=== PATIENT | male | born 1985 | race Caucasian/White ===

== ENCOUNTER 2025-03-30 18:45 | Emergency (ER) | payer OTHER ==
[~2025-03-30] VITALS: Ht 172.7 cm; Wt 77.0 kg
[2025-03-30 18:47] VITALS: TEMP 36.6; O2SAT 96
[2025-03-30] MEDS ORDERED: LORAZEPAM 2MG/ML INJ IM ONE (19:15)
[2025-03-30] MEDS: LORAZEPAM 2MG/ML UD SYRINGE IM NR (19:39)
[2025-03-30] MEDS: HALOPERIDOL LACTATE 5MG/ML VIAL IM ONE (19:39)
[2025-03-30 20:57] LABS: BASOPHILS % 0.3 % (0.0-2.0); EOSINOPHILS % 0.7 % (0.0-5.0); HEMATOCRIT. 28.8 % (42.0-52.0); HEMOGLOBIN. 9.9 g/dL (14.0-18.0); LYMPHOCYTES % 33.1 % (20.0-50.0); MEAN CORPUSCULAR HEMOGLOBIN 33.3 pg (28.0-32.0); MEAN CORPUSCULAR HGB CONC 34.3 g/dL (31.0-37.0); MEAN PLATELET VOLUME 10.4 fl (7.4-10.4); MONOCYTES % 11.9 % (2.0-8.0); PLATELET 120 x1000/uL (130-400); RED BLOOD CELL COUNT 2.97 mill/uL (4.7-6.1); RED CELL DISTRIBUTION WIDTH 15.5 % (11.6-14.6); WHITE BLOOD COUNT 10.4 x1000/uL (4.5-11.0)
[2025-03-30 21:15] LABS: CHLORIDE 96 mEq/L (98-107); POTASSIUM 3.3 mEq/L (3.5-5.1); SODIUM 137 mEq/L (136-145)
[2025-03-30 21:16] LABS: CALCIUM 7.6 mg/dL (8.7-10.4); CARBON DIOXIDE 29 mEq/L (21-32)
[2025-03-30 21:21] LABS: CREATININE 0.5 mg/dL (0.6-1.3); GLUCOSE 336 mg/dL (70-105); UREA NITROGEN BLOOD < 5 mg/dL (9-23)
[2025-03-30 21:22] LABS: ETHANOL BLOOD 300 mg/dL (<10)
[2025-03-30 21:23] LABS: ALANINE AMINOTRANSFERASE 44 IU/L (10-49); ALBUMIN 3.5 g/dL (3.2-4.8); ASPARTATE AMINOTRANSFERASE 85 IU/L (<34); BILIRUBIN DIRECT 0.4 mg/dL (<=3.0)
[2025-03-30 21:24] LABS: PROTEIN TOTAL 7.1 g/dL (6.0-8.3)
[2025-03-30 21:29] LABS: LACTIC ACID 3.3 mmol/L (0.4-2.0)
[2025-03-30 21:35] LABS: TROPONIN I HIGH SENSITIVITY < 4 ng/L (3.0-53)
[2025-03-30 21:39] LABS: CLARITY URINE CLEAR (CLEAR); COLOR URINE YELLOW (YELLOW); GLUCOSE URINE 3+ (NEGATIVE); KETONES URINE NEGATIVE (NEGATIVE); LEUKOCYTE ESTERASE URINE NEGATIVE (NEGATIVE); NITRITE URINE NEGATIVE (NEGATIVE); OCCULT BLOOD URINE NEGATIVE (NEGATIVE); PROTEIN URINE NEGATIVE (NEGATIVE); SPECIFIC GRAVITY URINE 1.009 (1.005-1.030)
[2025-03-30 22:00] LABS: BACTERIA URINE NONE SEEN; RBC URINE NONE SEEN /hpf (0-2); SQUAMOUS EPITHELIAL CELL URINE RARE /lpf (RARE/1+); WBC URINE NONE SEEN /hpf (0-2)
[2025-03-30 22:02] LABS: *AMPHETAMINES SCREEN URINE NEGATIVE (NEGATIVE)
[2025-03-30 22:03] LABS: *BARBITURATES SCREEN URINE NEGATIVE (NEGATIVE); *BENZODIAZEPINES SCREEN URINE NEGATIVE (NEGATIVE); *COCAINE SCREEN URINE NEGATIVE (NEGATIVE); CANNABINOID URINE SCREEN NEGATIVE (NEGATIVE); ECSTASY MDMA SCREEN URINE NEGATIVE (NEGATIVE); METHADONE URINE SCREEN NEGATIVE (NEGATIVE); OPIATES URINE SCREEN NEGATIVE (NEGATIVE); PHENCYCLIDINE URINE SCREEN NEGATIVE (NEGATIVE)
[2025-03-30] MEDS: MORPHINE SULFATE 4 MG/ML INJ (FOR IV/IM USE) IV STA (22:17)
[2025-03-30] MEDS: ONDANSETRON HCL 4MG/2ML INJ IV STA (22:17)
[2025-03-30] MEDS: PANTOPRAZOLE SODIUM 40 MG/VIAL IV STA (22:17)
[2025-03-30 22:37] LABS: INR 1.2
[2025-03-30] MEDS: POTASSIUM CHLORIDE 20MEQ/PACKET PO ONE (23:14)
[2025-03-31 00:46] VITALS: BP 133/94; PULSE 120; RESP 13; O2SAT 98
== END 2025-03-31 01:16 ==
LOC: ER 18:45 → EDBEDREQ 19:58 → EDBEDREQSVC 03-31 00:01 → ENRESERV 03-31 00:37 → ER 03-31 01:16
DX: E11.65 Type 2 diabetes mellitus with hyperglycemia (principal); F10.129 Alcohol abuse with intoxication, unspecified; I10 Essential (primary) hypertension; Z79.899 Other long term (current) drug therapy; Y90.8 Blood alcohol level of 240 mg/100 ml or more
CPT/HCPCS: 80076; 80305; 80048; 81003; 80320; 83880; 83605; 83690; 85025; 85610; 87040; 87086; 87186; 84484; 87077; 36415; 71045; 70450; 70486; 93005; 96372; 96374; 96375; 99291; J1630; J2060; J2405; J2470; J2270; Z7610; A4606; G0480